=== PATIENT | male | born 1950 | race Two or more races ===

== ENCOUNTER → 2022-05-10 | Emergency (ER) | payer OTHER ==
[~2022-05-10] VITALS: Ht 167.6 cm; Wt 76.2 kg
[~2022-05-10] MED LIST: ALDACTONE25 MG PO; CARTIA XT120 MG PO; COZAAR100 MG PO; HYZAAR 100-12.1 EACH; ZYLOPRIM100 M1 PO
== END | disposition home or self-care (01) ==
LOC: ER 09:59
DX: U07.1 COVID-19 (principal); Z88.0 Allergy status to penicillin; Z88.8 Allergy status to other drugs, medicaments and biological substances; I10 Essential (primary) hypertension

== ENCOUNTER 2023-01-18 13:01 | Emergency (ER) | payer OTHER ==
[~2023-01-18] VITALS: Ht 170.2 cm; Wt 72.1 kg
[2023-01-18] MEDS ORDERED: PAXLOVID 300-11 EACH PO (17:23)
== END 2023-01-18 17:32 | disposition home or self-care (01) ==
LOC: ER 13:01
DX: U07.1 COVID-19 (principal); I10 Essential (primary) hypertension; Z88.0 Allergy status to penicillin; Z88.8 Allergy status to other drugs, medicaments and biological substances

== ENCOUNTER 2024-08-13 16:25 | Emergency (ER) | payer OTHER ==
[~2024-08-13] VITALS: Ht 167.6 cm; Wt 68.9 kg
[~2024-08-13 16:25] MED LIST changes: +PAXLOVID 300-11 EACH PO
== END 2024-08-13 19:05 | disposition home or self-care (01) ==
LOC: ER 16:28
DX: J10.1 Influenza due to other identified influenza virus with other respiratory manifestations (principal); Z20.822 Contact with and (suspected) exposure to COVID-19; Z88.0 Allergy status to penicillin; Z88.8 Allergy status to other drugs, medicaments and biological substances